=== PATIENT | female | born 1975 | race Two or more races ===

== ENCOUNTER 2024-10-15 06:40 | Day surgery (SDC) | payer MEDICAID, SELFPAY ==
[2024-10-15] VITALS (9 sets, daily range): BP systolic 108–148; BP diastolic 55–88; PULSE 56–63; RESP 13–22; TEMP 36.6–36.7; O2SAT 98–100; BMI 28.1
[2024-10-15] MEDS: SODIUM CHLORIDE 0.9% 500 ML 500 ML 20 ML IV (07:22)
[2024-10-15] MEDS: DiphenhydrAMINE INJ 50 MG/ML VIAL 25 MG IV (07:29)
[2024-10-15] MEDS: MIDAZOLAM INJ 1 MG/ML VIAL 2 ML (ASD USE ONLY) 2 MG IV (07:32)
[2024-10-15] MEDS: fentaNYL CIT INJ 50 mCg/ML AMP 2ML (ASD USE ONLY) IV (07:34)
== END 2024-10-15 08:38 | disposition home or self-care (01) ==
PROVIDERS: PCP Family Medicine; Referring Provider Surgery; Visit Provider Surgery
PROC: 0DBE8ZX Excision of Large Intestine, Via Natural or Artificial Opening Endoscopic, Diagnostic (ICD-10-PCS; CPT 45380; principal; 2024-10-15 07:30)
DX: Z12.11 Encounter for screening for malignant neoplasm of colon (principal)
CPT/HCPCS: 45378; J1200; J2250; J3010; J7040

== ENCOUNTER 2025-01-14 00:06 | Emergency (ER) | payer MEDICAID, SELFPAY ==
[2025-01-14 00:08] VITALS: BMI 29.6
[2025-01-14 00:33] VITALS: BP 135/82; PULSE 72; RESP 16; TEMP 36.8; O2SAT 95
--- NOTE | 2025-01-14 00:36 | XR_ITS ---
Examination: Duplex scan of the upper extremity, unilateral right Date and time of exam: January 14, 2025 0137 hours INDICATIONS: Right arm swelling and pain beginning January 13, 2025 Technique: Duplex scan of the extremity veins using B-mode/grayscale imaging and Doppler spectral analysis and color flow Attention is directed to internal echogenicity, compression and augmentation involving these veins, color flow assessment, spectral analysis Findings: Major deep venous structures in the extremity demonstrate normal course and caliber. There is no evidence of deep vein thrombosis. Normal color flow and spectral analysis Impression: Negative for DVT..
--- NOTE | 2025-01-14 00:38 | EDNOTE_ITS ---
Upper Extremity Injury RME/HPI General Chief Complaint: Extremity Injury, Upper Stated Complaint: R ARM PAIN AND SWELLING Time Seen by Provider: 01/14/25 00:27 Arrival date/time: 01/14/25 00:06 49F with no significant PMH presents to ED with several months of intermittent RUE pain and swelling. It recently got worse around the time patient went to back to working in the [employer]. Patient is R-handed. Patient denies initial fall/trauma. Pain is worse with ROM. Limitations: no limitations Related Data Home Medications ?Medication ?Instructions ?Recorded ?Confirmed No Known Home Medications 10/15/24 04/0 04/02 Allergies Allergy/AdvReac Type Severity Reaction Status Date / Time No Known Allergies Allergy Unknown Verified 01/14/25 00:12 Review of Systems Review of Systems Systems Reviewed: All systems reviewed, normal except as documented Constitutional Constitutional: Reports system reviewed and no additional complaints, except as documented, Denies fever(s) and Denies headache(s) ENT Ears, Nose, Mouth, and Throat: Denies disequilibrium and Denies headache(s) Cardiovascular Cardiovascular: Reports system reviewed and no additional complaints, except as documented, Denies chest pain and Denies dyspnea Respiratory Respiratory: Reports system reviewed and no additional complaints, except as documented, Denies cough and Denies dyspnea Gastrointestinal Gastrointestinal: Reports system reviewed and no additional complaints, except as documented, Denies abdominal pain, Denies nausea and Denies vomiting Musculoskeletal Musculoskeletal: Reports as per HPI and Reports arthralgias Neurologic Neurologic: Reports system reviewed and no additional complaints, except as documented, Denies confusion, Denies disequilibrium and Denies headache(s) Psychiatric Psychiatric: Denies confusion Past Medical History Past Medical History NEUROLOGIC: Positive Neurological Disorders and Migraine; Negative Seizures CARDIAC: Negative Cardiac Disorders or Congestive Heart Failure RESPIRATORY: Negative Chronic Obstructive Pulmonary Disease (COPD) GASTROINTESTINAL: Negative Gastrointestinal Disorders or Hepatitis GENITOURINARY: Negative Genitourinary Disorders or Renal Disease REPRODUCTIVE: Positive Previous Pregnancies MUSCULOSKELETAL: Negative Musculoskeletal Disorders ENDOCRINE: Negative Endocrine Disorders, Diabetes Mellitus Type 1 or Diabetes Mellitus Type 2 HEMATOLOGIC: Negative Blood Disorders OTHER HISTORY: Positive Chicken Pox and Measles; Negative Hospitalization, Autoimmune Disease, Shingles, Blood Transfusions, Blood Transfusion Reaction, Anesthesia Reactions or Cancer Family History FAMILY HISTORY: Positive Family Cardiac Disorders, Family Cancer and Family Surgery; Negative Family Psychiatric Problems, Family Respiratory Disorders, Family Gastrointestinal Problems or Family Anesthesia Reaction Surgical History SURGICAL: Positive Hysterectomy (01/31/24) Social History SMOKING STATUS: Never smoker ED Exam General Limitations: Present no limitations General appearance: Present alert and in no apparent distress Head Head exam: Present atraumatic Eye Eye exam: Present normal appearance, PERRL and EOMI ENT ENT exam: Present normal exam, normal oropharynx and mucous membranes moist Neck Neck exam: Present normal inspection, full ROM and trachea midline Chest Chest inspection: Present normal inspection and symmetric chest wall rise Respiratory Respiratory exam: Present normal lung sounds bilaterally Cardiovascular Cardiovascular exam: Present regular rate, normal rhythm and normal heart sounds Abdominal Exam Abdominal exam: Present soft and normal bowel sounds Extremities Exam Extremities exam: Present normal inspection and full ROM Back Exam Back exam: Present normal inspection and full ROM Neurological Exam Neurological exam: Present alert, oriented X3 and CN II-XII intact Psychiatric Psychiatric exam: Present normal affect and normal mood Skin Skin exam: Present warm, dry, intact and normal color Course Quality Measures none Orders Category Date Time Status US venous doppler UE RT Stat Exams 01/14/25 00:36 Taken Naproxen [Naprosyn] Med 01/14/25 00:36 Discontinued 500 mg PO X1 ONE Vital Signs Vital signs: Vital Signs Temperature 98.3 F 01/14/25 00:33 Pulse Rate 72 01/14/25 00:33 Respiratory Rate 16 01/14/25 00:33 Blood Pressure 135/82 H 01/14/25 00:33 Pulse Oximetry (%) 95 01/14/25 00:33 Oxygen Delivery Method Room Air 01/14/25 00:33 O2 at 95% on RA and WNLs Extremity Injury MDM Narrative MDM Narrative:: 49F with no significant PMH presents to ED with several months of intermittent RUE pain and swelling. It recently got worse around the time patient went to back to working in the [employer]. Patient is R-handed. Patient denies initial fall/ trauma. Pain is worse with ROM. Physical exam reveals no obvious RUE abnormality. ROM intact. Patient is afebrile, calm, and alert. US no DVT. Likely MSK-related. Meds and weight loss counselor given. Patient data External records reviewed:: [facility] previous records Clinical information provided by:: patient Social determinants that could affect healthcare access:: none Patient has the following chronic illnesses:: none How is presenting disease/condition affected by chronic disease/condition?: no chronic disease Evaluation data The following diagnostics were reviewed and interpreted by me:: radiology exam(s) Lab and/or radiology exams considered but not ordered:: ordered Interpretation Summary: above Medications / Prescriptions Medications or Prescriptions considered but not ordered:: ordered Medication administrations:: Medication Administration History Discontinued Medications Naproxen (Naproxen 250 Mg Tablet) 500 mg PO X1 ONE Stop: 01/14/25 00:37 Last Admin: 01/14/25 00:48 Dose: 500 mg Documented By: KF above Consultations Consultation(s) initiated? (list below): No Diagnosis Upper Extremity Injury Differential Diagnosis: sprain and strain of wrist, fracture of wrist, finger sprain, dislocation of finger, Colles' fracture, fracture of hand, dislocation of shoulder, fracture of humerus, fracture of clavicle and other (DVT, arthralgia) Most likely diagnosis given after review of the tests above:: arthralgia Admission Indicated Admission indicated?: not indicated Admission Request Was there a request for admission?: No Disposition Plan Disposition Plan: Discharge Discharge Attestation Discharge Attestation: The patient and all family members were given an opportunity to ask questions and understood the discharge instructions. Discharge instructions specifically effects, indications for sooner follow up or return to the emergency department, and the expected course of current diagnosis. Patient condition: Stable Discharge Plan Plan Patient Disposition: HOME (Self Care) Discharge Disposition comment: Stable Prescriptions/Referrals Prescriptions/Med Rec: No Action No Known Home Medications Referrals: No Primary/Family,Physician [Primary Care Provider] - In 1 week Problem List Clinical Impression: Arthralgia Patient/Caregiver Discharge Instructions Education Materials: ED Arthralgia Additional Instructions: Please follow-up with PCP within 24-48 hours and return immediately if symptoms worsen. If problem persists, recommend outpatient PT and/or MRI follow-up. In the meantime, rest, use ice/heat, and/or compression. NSAIDs like ibuprofen tend to work better for this type of pain. Print Language: Tanzanian Stand Alone Forms: Patient Portal Info Letter ROBERTA/CHELSEY Supervising Physician ROBERTA/CHELSEY Supervising Physician: Dr. Hansen
[2025-01-14] MEDS: NAPROXEN 250 MG TABLET 500 MG PO (00:48)
--- NOTE | 2025-01-14 03:06 | PRELIM_ITS ---
Right upper extremity venous Doppler ultrasound. January 14, 2025 0137 hours Clinical history: Rule out DVT. Technique: Duplex scan of the right arm performed utilizing, 2D grayscale imaging, Doppler spectral analysis and color flow Doppler with compression. Findings: The internal jugular vein is patent and compressible. The subclavian vein is patent. The axillary and brachial veins are patent and demonstrate good compression. The cephalic and basilic veins are patent and demonstrate good compression. The radial and ulnar veins are patent and demonstrate good compre ssion. No evidence of thrombosis. Impression: No evidence of venous thrombosis in the right upper extremity. Report Electronically Signed By: Tita Cox 01/14/2025 3:06:11 AM [EST]
== END 2025-01-14 03:14 | disposition home or self-care (01) ==
PROVIDERS: Emergency Provider Emergency Medicine
DX: M25.50 Pain in unspecified joint (principal); M79.89 Other specified soft tissue disorders; M79.601 Pain in right arm
CPT/HCPCS: 93971; 99283; A9270

== ENCOUNTER 2025-01-15 06:05 | Day surgery (SDC) | payer MEDICAID, SELFPAY ==
[2025-01-14 10:18] VITALS: BMI 31.4
--- NOTE | 2025-01-14 10:28 | EKG_ITS ---
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
[2025-01-14 11:05] LABS: Basophils # (Auto) 0.0 Thou/mm3 (0.0-0.2); Basophils % (Auto) 0 % (0-2.5); Eosinophils # (Auto) 0.2 Thou/mm3 (0.0-0.5); Eosinophils % (Auto) 2 % (0-10); Hematocrit 34.3 % (36.0-46.0); Hemoglobin 12.1 g/dL (12.0-16.0); Immature Granulocytes Auto 0.03 Thou/mm3 (0.00-0.00); Lymphocytes # (Auto) 2.6 Thou/mm3 (1.0-4.8); Lymphocytes % (Auto) 37 % (10-50); Mean Corpuscular HGB Conc 35.3 g/dl (31.0-37.0); Mean Corpuscular Hemoglobin 31.3 pg (25.0-35.0); Mean Corpuscular Volume 89 fL (80-100); Monocytes # (Auto) 0.6 Thou/mm3 (0.0-0.8); Monocytes % (Auto) 9 % (0-12); Neutrophils # (Auto) 3.6 Thou/mm3 (1.8-7.7); Neutrophils % (Auto) 51 % (37-80); Nucleated Red Blood Cell # 0.00 Thou/mm3 (0.00-0.00); Nucleated Red Blood Cell % 0 /100 WBC (0); Platelet Count 328 Thou/mm3 (140-440); RDW Standard Deviation 40.7 fL (36.4-46.3); Red Blood Count 3.87 Miln/mm3 (4.00-5.20); White Blood Count 6.9 Thou/mm3 (3.6-11.0)
[2025-01-14 11:36] LABS: B-Type Natriuretic Peptide 55 pg/mL (0-100)
[2025-01-14 13:29] LABS: Anion Gap 9 (7-16); BUN/Creatinine Ratio 15 Ratio (12-20); Blood Urea Nitrogen 12 mg/dL (9-23); Calcium 8.8 mg/dL (8.3-10.6); Carbon Dioxide 23.5 mMol/L (20.0-31.0); Chloride 109 mMol/L (98-107); Creatinine (Component) 0.8 mg/dL (0.6-1.3); Estimated Creatinine Clearance 77.2 mL/min (>60); Glucose 94 mg/dL (74-106); Osmolality,Calculated 280 (275-295); Potassium 4.3 mMol/L (3.4-5.1); Sodium 141 mMol/L (136-145); eGFR > 60 See Note
--- NOTE | 2025-01-14 14:40 | SUR.PREOP ---
Pt notified to come in tomorrow at 0630.
[2025-01-15] VITALS (8 sets, daily range): BP systolic 111–148; BP diastolic 53–87; PULSE 52–58; RESP 14–20; TEMP 36.6; O2SAT 96–100; BMI 30.4
--- NOTE | 2025-01-15 09:03 | SUR.PHASEI ---
0903 Patient arrived to recovery resting comfortably in [facility], on oxygen 8L via oxy mask with an oral airway in place, breathing unlabored, vital signs stable, dressing intact to interior of right upper arm; dermabond, no bleeding noted, report received from Russ LLANOS/ Ajit BUI and Juan David MOONEY
--- NOTE | 2025-01-15 09:03 | ESOP_ITS ---
Date of Procedure 01/15/25 Pre Op Diagnosis Right upper extremity soft tissue mass Post Op Diagnosis Right upper arm subcutaneous soft tissue mass Procedure Excision of subcutaneous soft tissue mass from right upper arm Findings An approximately 7 cm diameter lipomatous mass in the subcutaneous soft tissue mass of right upper arm Procedure Description Patient brought into the operating room in supine position. After administration of general endotracheal anesthesia, patient's right upper extremity prepped and draped in standard surgical manner. The mass was palpated noted to be in the upper and medial aspect of right upper extremity. After administration of local anesthesia an approximately 8 cm elliptical incision was made and dissection was deepened into soft tissue. The underlying subcutaneous soft tissue mass was excised circumferentially from surrounding tissue and excised. It was approximately 7 cm in diameter, was lipomatous in nature. The wound was washed and irrigated and hemostasis achieved using electrocautery. Subcutaneous tissue closed with interrupted sutures using 2-0 Vicryl and the incision was closed with 4-0 Monocryl in subcuticular fashion. Dermabond applied. Patient tolerated the procedure well. She was extubated, breathing spontaneously and without difficulty and was transferred to postanesthesia care in stable condition. Instruments, needles and sponge counts were reported to be correct x 2. Anesthesia GETA and local Pathology / specimen Other (Right upper arm soft tissue mass) Estimated Blood Loss 5 Condition Stable Disposition PACU Surgeon Zan Lopez MD Surgical Staff Operation Date: 01/15/25 08:45 Case Staff SALES PROMOTION OFFICER: Russ Peguero
--- NOTE | 2025-01-15 10:13 | SUR.PHASEII ---
1013 Patient meets discharge criteria from recovery, awake and alert, breathing unlabored, vital signs stable, denies pain states, It's just sore , dressing intact; no bleeding noted, arm sling provided for support, ate a jello and drinking water; denies nausea, assisted with dressing into her clothing by this comic writer, discharge instructions given to patient and patients son with the assistance of the telephone lymphedema therapist Yi ID# [id number], patients son signed discharge instructions. Patient given all her belongings prior to discharge, transported via wheelchair and left in a private vehicle.
== END 2025-01-15 10:13 | disposition home or self-care (01) ==
PROVIDERS: PCP Family Medicine; Referring Provider Surgery; Visit Provider Surgery
PROC: (CPT 24071; principal; 2025-01-15 08:30)
DX: D17.21 Benign lipomatous neoplasm of skin and subcutaneous tissue of right arm (principal); Z01.810 Encounter for preprocedural cardiovascular examination
CPT/HCPCS: 24071; 36415; 80048; 83880; 85025; 93005; A4217; A4649; J0131; J0690; J1100; J2405; J2704; J3010; J3490